=== PATIENT | male | born 2000 ===

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

== ENCOUNTER 2020-08-03 11:09 | Emergency (ER) | payer OTHER ==
[~2020-08-03] VITALS: Ht 175.3 cm; Wt 77.1 kg
[~2020-08-03 11:09] MED LIST changes: +CLINDAMYCIN HC300 MG PO; +IBUPROFEN600 MG PO; +INTESTINEX680 M1 PO; +PEPCID AC20 MG PO
[2020-08-03] MEDS ORDERED: DOLOGESIC 500-1 EACH PO (19:50)
[2020-08-03] MEDS ORDERED: TAMS0.4C PO (19:50)
== END 2020-08-03 20:04 | disposition home or self-care (01) ==
LOC: EMR PED 11:09 → ER 11:14 → EMR PED 20:04
DX: N20.1 Calculus of ureter (principal); N50.3 Cyst of epididymis; R10.31 Right lower quadrant pain; N50.811 Right testicular pain; R31.29 Other microscopic hematuria; Z03.818 Encounter for observation for suspected exposure to other biological agents ruled out

== ENCOUNTER 2020-08-08 14:26 | Emergency (ER) | payer OTHER ==
[~2020-08-08] VITALS: Ht 175.3 cm; Wt 72.6 kg
[~2020-08-08 14:26] MED LIST changes: +DOLOGESIC 500-1 EACH PO; +TAMS0.4C PO
[2020-08-09] MEDS ORDERED: KETO10TA2 PO (05:33)
== END 2020-08-09 05:47 | disposition home or self-care (01) ==
LOC: EMR PED 14:26
DX: N13.2 Hydronephrosis with renal and ureteral calculous obstruction (principal)